=== PATIENT | male | born 1985 | race African-American/Black ===

== ENCOUNTER 2020-11-10 20:35 | Inpatient (IN) ==
[2020-11-10] MEDS ORDERED: 0.9 % Sodium Chloride 250 ML ONE (20:54)
[2020-11-10] MEDS ORDERED: *HR* EPINEPHrine 1 MG/10 ML SYRINGE IVP ONE (21:00)
[2020-11-10] MEDS: Norepinephrine 4 MG/254 ML IV.SOLN IVC SCH (21:03)
[2020-11-10] MEDS ORDERED: Isovue-370 500 ML BOTTLE IVP ONE (21:03)
[2020-11-10] MEDS ORDERED: EPINEPHrine 1 MG in D5% in Water 250 ML IVC SCH ×2 (21:15→22:30)
[2020-11-10 21:22] LABS: ABG Base Excess -17 mEq/L (-2 to 3); ABG HCO3 17 mEq/L (21-27); ABG Oxygen Saturation 72 % (95-98); ABG PCO2 85 mmHg (35-45); ABG PO2 64 mmHg (85-104); ABG TCO2 19 mEq/L (20-26); Blood Gas Modality ASSIST CONTROL; Blood Gas VT 500 cc
[2020-11-10 21:34] LABS: Influenza A PCR Negative (Negative); Influenza B PCR Negative (Negative); Resp. Syncytial Virus PCR Negative (Negative)
[2020-11-10 21:35] LABS: SARS-CoV-2 by PCR (In House) Negative (Negative)
[2020-11-10 21:38] LABS: Hematocrit 39.3 % (37.5-50.1); Hemoglobin 11.9 g/dL (12.9-16.9); Mean Corpuscular HGB Conc 30.3 g/dL (31.6-35.5); Mean Corpuscular Hemoglobin 27.4 pg (28.0-33.3); Mean Corpuscular Volume 90.6 fL (83.0-100.0); Mean Platelet Volume 11.3 fL (9.4-12.4); Nucleated Red Blood Cells 0.1 /100 WBC (0); Platelet Count 269 K/mcL (140-400); Red Blood Count 4.34 M/mcL (4.19-5.50); Red Cell Distribution Width 12.7 % (11.5-14.5); White Blood Count 22.4 K/mcL (4.3-11.1)
[2020-11-10] MEDS ORDERED: EPINEPHrine 1 MG/ML VIAL ONE ×2 (21:39→22:36)
[2020-11-10] MEDS ORDERED: D5% in Water 250 ML ONE ×2 (21:39→22:37)
[2020-11-10 21:42] LABS: VBG HCO3 16 mEq/L (21-27); VBG PCO2 97 mmHg (41-51); VBG PH 6.82 pH Units (7.32-7.42); VBG PO2 97 mmHg (25-50)
[2020-11-10 21:46] LABS: Bilirubin,Urine Negative (Negative); Blood,Urine Negative (Negative); Clarity,Urine Clear (Clear); Color,Urine Yellow (Yellow); Glucose,Urine (UA) 150 mg/dL (Normal); Hyaline Casts,Urine Few per lpf (None Seen); Ketones,Urine Negative (Negative); Leukocyte Esterase,Urine Negative (Negative); Mucus,Urine Few per lpf (None-Few); Nitrite,Urine Negative (Negative); Protein,Urine 100 mg/dL (Neg-Trace); RBC,Urine 0-3 per hpf (0-3); Specific Gravity,Urine 1.028 (1.010-1.025); Sperm,Urine Present per hpf (None Seen); Squamous Epithelial Cell,Urine Few per hpf (None-Few); Urobilinogen,Urine Normal (Normal); WBC,Urine 0-3 per hpf (0-3)
[2020-11-10 21:46] LABS: Prothrombin Time 11.1 Seconds (9.4-12.1)
[2020-11-10 21:54] LABS: Basophils # 0.5 K/mcL (0.0-0.2); Eosinophils # 0.5 K/mcL (0.0-0.6); Lymphocytes # 11.7 K/mcL (0.6-4.6); Monocytes # 1.8 K/mcL (0.0-1.3); Neutrophils # 8.1 K/mcL (1.6-8.9)
[2020-11-10 22:05] LABS: Alanine Aminotransferase 187 Units/L (7-52); Albumin 3.6 g/dL (3.5-5.7); Albumin/Globulin Ratio 1.6 (1.1-2.2); Alkaline Phosphatase 95 Units/L (34-104); Aspartate Amino Transferase 198 Units/L (13-39); BUN/Creatinine Ratio 7 (6-26); Bilirubin,Indirect 0.2 mg/dL (0.0-1.0); Bilirubin,Total 0.2 mg/dL (0.3-1.0); Blood Urea Nitrogen 10 mg/dL (6-20); Calcium 9.8 mg/dL (8.6-10.3); Carbon Dioxide 16 mEq/L (23-29); Chloride 95 mEq/L (98-107); Creatine Kinase 78 Units/L (30-223); Globulin 2.3 g/dL (2.4-3.5); Glucose 631 mg/dL (70-105); Magnesium 3.1 mg/dL (1.6-2.6); Osmolality,Calculated 313 (280-300); Potassium 3.5 mEq/L (3.5-5.1); Sodium 137 mEq/L (136-145); Total Protein 5.9 g/dL (6.4-8.9); Troponin I < 0.03 ng/mL (< 0.04); eGFR For African Americans > 60 (> 60); eGFR For Non-African Americans 52 (> 60)
[2020-11-10 22:22] LABS: Thyroid Stimulating Hormone 3.677 mcIU/mL (0.340-5.600)
[2020-11-10] MEDS ORDERED: Vancomycin 1,750 MG/517.5 ML IV.SOLN IVPB ONE (22:28)
[2020-11-10] MEDS ORDERED: Piperacillin/Tazobactam 3.375 GM in Water for inj. (sterile) 20 ML IVP ONE (22:28)
[2020-11-10] MEDS ORDERED: Potassium Chloride Elixir 20 MEQ/15 ML UDC GTUBE SCH (22:30)
[2020-11-10] MEDS ORDERED: Ringers Solution, Lactated 1,000 ML IVC ONE (22:30)
[2020-11-10] MEDS ORDERED: EPINEPHrine 5 MG in D5% in Water 250 ML IVC SCH (22:45)
[2020-11-10 23:34] LABS: Amphetamine Screen,Urine Negative ng/mL (Cutoff=1000); Barbiturate Screen,Urine Negative ng/mL (Cutoff=200); Benzodiazepines Screen,Urine Negative ng/mL (Cutoff=200); Cannabinoid Screen,Urine Negative ng/mL (Cutoff = 50); Cocaine Screen,Urine Positive ng/mL (Cutoff= 300); Opiate Screen,Urine Negative ng/mL (Cutoff=300); Phencyclidine Screen,Urine Negative ng/mL (Cutoff=25)
[2020-11-10] MEDS ORDERED: Ipratropium/Albuterol Neb 3 ML ONE (23:35)
[2020-11-10] MEDS ORDERED: Ipratropium/Albuterol Neb 3 ML IH ONE (23:51)
[2020-11-11 00:08] LABS: ABG Base Excess -2 mEq/L (-2 to 3); ABG HCO3 28 mEq/L (21-27); ABG Oxygen Saturation 78 % (95-98); ABG PCO2 72 mmHg (35-45); ABG PH 7.19 pH Units (7.32-7.45); ABG PO2 54 mmHg (85-104); ABG TCO2 30 mEq/L (20-26); Blood Gas VT 500 cc
[2020-11-11] MEDS ORDERED: Artificial Tears SOLN 15 ML BOTTLE BOTH EYES PRN (00:13)
[2020-11-11] MEDS ORDERED: Chlorhexidine Rinse 15 ML MOUTHWASH MM SCH (00:15)
[2020-11-11] MEDS ORDERED: FentaNYL (PF) 1,000 MCG/100 ML IV.SOLN IVC SCH (00:15)
[2020-11-11] MEDS ORDERED: Midazolam HCl 50 MG/100 ML IV.SOLN IVC SCH (00:15)
[2020-11-11] MEDS ORDERED: Vancomycin 1,750 MG in 0.9 % Sodium Chloride 250 ML IVPB SCH (01:00)
[2020-11-11 03:31] LABS: VBG Ionized Calcium 1.22 mmol/L (1.15-1.35)
[2020-11-11 03:34] LABS: Heparin anti-factor XA UFH < 0.04 IU/mL (0.30-0.70)
[2020-11-11 03:35] LABS: Prothrombin Time 11.6 Seconds (9.4-12.1)
[2020-11-11 03:37] LABS: Activated Partial Thrombo Time 27.8 Seconds (26.0-36.0)
[2020-11-11 03:48] LABS: Albumin 3.5 g/dL (3.5-5.7); Albumin/Globulin Ratio 1.3 (1.1-2.2); Bilirubin,Total 0.3 mg/dL (0.3-1.0); Calcium 8.4 mg/dL (8.6-10.3); Globulin 2.7 g/dL (2.4-3.5); Magnesium 1.8 mg/dL (1.6-2.6); Phosphorous 3.1 mg/dL (2.7-4.5); Potassium 4.1 mEq/L (3.5-5.1); Total Protein 6.2 g/dL (6.4-8.9)
[2020-11-11 03:50] LABS: Troponin I 0.78 ng/mL (< 0.04)
[2020-11-11 03:55] LABS: ABG Base Excess -4 mEq/L (-2 to 3); ABG HCO3 23 mEq/L (21-27); ABG Oxygen Saturation 84 % (95-98); ABG PCO2 44 mmHg (35-45); ABG PH 7.32 pH Units (7.32-7.45); ABG PO2 53 mmHg (85-104); ABG TCO2 24 mEq/L (20-26); Blood Gas VT 500 cc
[2020-11-11] MEDS ORDERED: Artificial Tears SOLN 15 ML BOTTLE BOTH EYES SCH (04:00)
[2020-11-11 04:09] LABS: D-Dimer 22424 ng/mLFEU (0-500)
[2020-11-11 04:19] LABS: Basophils % 0.3 %; Eosinophils # 0.1 K/mcL (0.0-0.6); Eosinophils % 0.8 %; Hematocrit 42.8 % (37.5-50.1); Hemoglobin 14.3 g/dL (12.9-16.9); Lymphocytes # 1.7 K/mcL (0.6-4.6); Lymphocytes % 14.6 %; Mean Corpuscular HGB Conc 33.4 g/dL (31.6-35.5); Mean Corpuscular Hemoglobin 27.4 pg (28.0-33.3); Mean Corpuscular Volume 82.1 fL (83.0-100.0); Mean Platelet Volume 10.9 fL (9.4-12.4); Monocytes # 0.3 K/mcL (0.0-1.3); Monocytes % 2.3 %; Neutrophils # 9.6 K/mcL (1.6-8.9); Nucleated Red Blood Cells 0.2 /100 WBC (0); Platelet Count 274 K/mcL (140-400); Red Blood Count 5.21 M/mcL (4.19-5.50); White Blood Count 11.9 K/mcL (4.3-11.1)
[2020-11-11] MEDS: Norepinephrine 4 MG/254 ML IV.SOLN IVC SCH (04:33)
[2020-11-11] MEDS ORDERED: *HR* Heparin 5,000 UNIT/ML VIAL IVP ONE (04:35)
[2020-11-11] MEDS ORDERED: *HR* Heparin 5,000 UNIT/ML VIAL IVP PRN ×2 (04:35)
[2020-11-11] MEDS ORDERED: *HR* Dextrose 50 % in Water (Syg) 50 ML SYRINGE IVP PRN (04:45)
[2020-11-11] MEDS ORDERED: Insulin LISPRO 300 UNITS/3 ML VIAL SUBQ PRN (04:45)
[2020-11-11] MEDS ORDERED: Heparin 25,000UNIT/250ML 1/2NS 25,000 UNIT/250 ML IV.SOLN IVC SCH (04:45)
[2020-11-11 04:47] LABS: Platelet Estimate Normal (Normal)
[2020-11-11 04:54] VITALS: TEMP 97.4
[2020-11-11 06:18] VITALS: BP 79/59; PULSE 119; O2SAT 85
[2020-11-11] MEDS ORDERED: Perflutren Lipid Microsphere 1.3 ML in 0.9 % Sodium Chloride 8.7 ML IVP PRN (06:37)
[2020-11-11] MEDS ORDERED: *HR* Atropine Sulfate 1 MG/10 ML SYRINGE ONE (06:40)
[2020-11-11] MEDS ORDERED: Piperacillin/Tazobactam 3.375 GM in 0.9 % Sodium Chloride Mini Bag 100 ML IVPB SCH (08:00)
[2020-11-11] MEDS ORDERED: Pantoprazole 40 MG VIAL IVP SCH (09:00)
[2020-11-12] MEDS ORDERED: Vancomycin 1,500 MG/265 ML IV.SOLN IVPB SCH (01:00)
== END 2020-11-11 07:17 | disposition expired | DRG 720 ==
LOC: ICNU 20:35 → EMEROOARM 20:35 → OBSVTOIN 23:46 → ICNU 11-11 00:55
PROVIDERS: ADMIT Family Medicine; ATTEND Family Medicine